=== PATIENT | female | born 1990 | race Caucasian/White ===

== ENCOUNTER 2016-12-19 12:09 | Emergency (ER) | payer OTHER ==
[~2016-12-19] VITALS: Ht 162.6 cm; Wt 115.0 kg
[2016-12-19 12:12] VITALS: BP 138/78; PULSE 104; RESP 20; TEMP 97.7; O2SAT 100
--- NOTE | 2016-12-19 12:22 | PD ---
Physical Exam Time Seen by Provider: 12:19 Narrative 26yo F c/o feeling depressed and having SI. Plan is to take a bunch of pills and then eat cherries so her throat closes up so she can't throw them up. She is allergic to red dyes and cherries. Patient seen in triage. VS reviewed. Awaiting bed placement. Data Data Last Documented VS Vital Signs Date Time Temp Pulse Resp B/P (MAP) Pulse Ox O2 Delivery O2 Flow Rate FiO2 12/19/16 12:12 97.7 104 20 138/78 (98) 100 Room Air MDM Supervised Visit with INDIO: Sharri Thomas Dec 19, 2016 12:22
[2016-12-19 12:32] VITALS: BP 131/79; PULSE 99; O2SAT 96
--- NOTE | 2016-12-19 15:02 | PD ---
HPI Chief Complaint: Psychiatric Symptoms Time Seen by Provider: 12:35 Travel History International Travel<30 days: No Contact w/Intl Traveler<30days: No Traveled to known affect area: No History of Present Illness HPI 26 year-old woman who presents to the emergency department complaining of increased depression symptoms. She had voiced some thoughts about swallowing pills in triage. She now states she would never really do that. She does endorse significant depression symptoms. Her mom is here with her. She has extensive social problems. Her mom apparently is on disability. She's been trying to apply for disability, presumably because of her depression, but was denied. She does not have insurance and does not have a job. She's been taking psychiatric medications. She states every time they adjust her medicines at work for about a week or so and then she is back to where she was. She is not doing any counseling or therapy or other supportive services. She states she's done that before but because of problems with her father and insurance and never really worked. History Past Medical History Narrative Medical Depression Social History Alcohol Use: No Tobacco Use: No Review of Systems Except as stated in HPI: all other systems reviewed are Neg Physical Exam Narrative GENERAL: Well-appearing 26 year-old woman, no acute distress. SKIN: Focused skin assessment warm/dry. HEAD: Atraumatic. Normocephalic. EYES: Pupils equal and round. No scleral icterus. No injection or drainage. ENT: No nasal bleeding or discharge. Mucous membranes pink and moist. NECK: Trachea midline. No JVD. CARDIOVASCULAR: Regular rate and rhythm. No murmur appreciated. RESPIRATORY: No accessory muscle use. Clear to auscultation. Breath sounds equal bilaterally. GASTROINTESTINAL: Abdomen soft, non-tender, nondistended. Hepatic and splenic margins not palpable. MUSCULOSKELETAL: No obvious deformities. No clubbing. No cyanosis. No edema. NEUROLOGICAL: Awake and alert. No obvious cranial nerve deficits. Motor grossly within normal limits. Normal speech. PSYCHIATRIC: Patient endorses depressed yelling some thoughts. She has a normal mental status. She has a normal range of motion. Data Data Last Documented VS Vital Signs Date Time Temp Pulse Resp B/P (MAP) Pulse Ox O2 Delivery O2 Flow Rate FiO2 12/19/16 12:32 99 131/79 (96) 96 12/19/16 12:12 97.7 20 Room Air Orders MDM Medical Decision Making Medical Screen Exam Complete: Yes Emergency Medical Condition: Yes Differential Diagnosis Stress reaction, depression, or other Narrative Course Medical decision making To 26 year-old woman with increased depression symptoms. Does not appear to be an immediate threat to herself or others. She seems like she would benefit a lot from cognitive behavioral therapy. Seems like a lot of her problems are tied into her social situation. Seen by financial counseling, assist with Medicaid insurance. Recommend outpatient follow-up. Diagnosis Primary Impression: Depression Additional Instructions: Follow-up with outpatient resources as provided. Return to the emergency department for any new or worsening symptoms. Med/Other Pt SpecificInfo: No Change to Meds Disposition: 01 DISCHARGE HOME Condition: Stable Bruce Hook MD Dec 19, 2016 15:02
[2016-12-19 15:21] VITALS: BP 142/72; PULSE 77; RESP 19; O2SAT 100
== END 2016-12-19 15:22 | disposition home or self-care (01) ==
LOC: NEPD 12:09
DX: F32.9 Major depressive disorder, single episode, unspecified (principal); R45.851 Suicidal ideations
CPT/HCPCS: 84703; 99282